=== PATIENT | male | born 1960 | race Caucasian/White ===

== ENCOUNTER → 2017-08-08 | Outpatient (CLI) | payer BC, OTHER ==
[~2017-08-08] MED LIST: AMLO-96 PO; AMOX-559 PO; ATR10 PO; CYCL10TA29 PO; DIPH0.5D12 IM; FLU IM; FLU45SYR17 IM; FLU60VIA21 IM ONLY; FLUT16SP20 NS; GUAI120L3 PO; IBU600 PO; IBU800 PO; LISI-362 PO; LISI20TA29 PO; LOR5 PO; NABU-95 PO; PER PO; PRED20TA6 PO; SIMV-49 PO; TAM4 PO; TAMS0.4C70 PO; TRAZ-156 PO; VAL80 PO; ZOL5 PO; ZOLP-358 PO; ZOLP-360 PO; ZOST19404 SQ
--- NOTE | 2017-08-08 13:26 | RADIOLOGY IMAGING REPORT ---
FACILITY: [facility] PATIENT NAME: Rajat Isidro : 1960 MR: [id number] V: [id number] EXAM DATE: ORDERING PHYSICIAN: SAMUEL DUPREE TECHNOLOGIST: [place] [facility] [place] Rajat Isidro : 1960 Visit/Account:[id number] Date of Sevice: 08/08/2017 ABDOMEN/PELVIS W/O CONTRAST HISTORY: flank pain and hematuria TECHNIQUE: Axial images acquired through the abdomen/pelvis. Coronal and sagittal reformatting also performed. No IV contrast administered. Dose Lowering Technique One of the following dose optimization techniques was utilized in the performance of this exam: Autom ated exposure control; adjustment of the mA and/or kV according to the patient's size; or use of an i terative reconstruction technique. Specific details can be referenced in the facility's radiology C T exam operational policy. COMPARISON: None. FINDINGS: Visualized lung bases: Small amount linear stranding at lung bases may represent scarring versus min imal atelectasis. Hepatobiliary: Cholelithiasis although no evidence of biliary ductal dilatation. There is a 1.6 cm hypoattenuating lesion in the medial segment left lobe of the liver in addition to several smaller hy poattenuating lesions that are indeterminate. Spleen: Negative. Adrenals: Negative. Pancreas: Negative. Kidneys ureters and bladder: 3 mm nonobstructing calculus mid pole of the right kidney. 2 mm nonobst ructing calculus lower pole calyx of the left kidney there appear to be numerous parapelvic cysts karo aterally although the kidneys not ideally evaluated due to lack of intravenous contrast. There are m ultiple hypodensities in both kidneys. The largest ones appear to represent cysts although are too s ome are too small to characterize and range in size up to 4.1 cm. There is no evidence of hydrourete r. The bladder is not well distended with urine and therefore not ideally evaluated. There are blad christian diverticula present. There is a slightly hyperdense filling defect seen along the inferior aspec t of the bladder measuring approximately 3 cm in diameter. Is unclear as to whether this represents superior extension of the prostate gland or a bladder mass. Genitalia: Prostate gland is enlarged and impinges upon the floor the urinary bladder. GI: Negative. Vessels/spaces/nodes: There are multiple small mesenteric lymph nodes present . There are moderate vascular calcifications present Bones/soft tissues: There are bilateral inguinal hernias containing fat. There is an umbilical moody ia containing fat. . There are moderate spondylotic changes L5-S1 with a grade 1 anterior listhesis of L5 with respect to S1 secondary to bilateral pars defects at L5 Additional findings: None pertinent. IMPRESSION: Nonobstructing calculi seen in both renal collecting systems There appear to be numerous parapelvic cysts and other hypodensities throughout both kidneys that are indeterminate. There is no evidence of hydroureter. There is a 3 cm in diameter hyperdense filling defect along the inferior aspect of the bladder which could represent superior extension of the pros alcantara gland although a bladder mass is also on the differential diagnosis. A CT urogram with delayed images through the renal collecting systems and bladder recommended. Bilateral inguinal hernias containing fat Umbilical hernia containing fat Cholelithiasis although no evidence for ductal dilatation Hypoattenuating lesions in the liver which could be further evaluated with CT Report Dictated By: Christie Gonzalez MD at 08/08/2017 11:35 AM Report E-Signed By: Christie Gonzalez MD at 08/08/2017 1:23 PM WSN:[email or web address]
== END ==
LOC: CT 07:44
PROVIDERS: ATTEND Nurse Practitioner Family
DX: K80.20 Calculus of gallbladder without cholecystitis without obstruction (principal); N20.0 Calculus of kidney; N32.3 Diverticulum of bladder; N40.0 Benign prostatic hyperplasia without lower urinary tract symptoms; K40.20 Bilateral inguinal hernia, without obstruction or gangrene, not specified as recurrent; K42.9 Umbilical hernia without obstruction or gangrene
CPT/HCPCS: 74176

== ENCOUNTER → 2017-08-13 | Outpatient (CLI) | payer BC ==
[~2017-08-13] MED LIST changes: +IOPAMIDOL 76% 75 ML INFUS BTL 75 ML ONE; +NS 0.9% 20 ML SDV 40 ML ONE
--- NOTE | 2017-08-13 15:32 | RADIOLOGY IMAGING REPORT ---
FACILITY: [facility] PATIENT NAME: Rajat Isidro : 1960 MR: [id number] V: [id number] EXAM DATE: ORDERING PHYSICIAN: SAMUEL DUPREE TECHNOLOGIST: Location: [facility] Patient: Rajat Isidro : 1960 Visit/Account:[id number] Date of Sevice: 08/13/2017 CT ABDOMEN WITH IV CONTRAST CLINICAL INFORMATION: Liver lesions TECHNIQUE: Axial CT images were obtained through the abdomen during injection of nonionic iodinated intravenous contrast. Reformatted coronal and sagittal images were also obtained. Dose Lowering Tech Y-Klub One of the following dose optimization techniques was utilized in the performance of this exam: Autom ated exposure control; adjustment of the mA and/or kV according to the patient's size; or use of an i terative reconstruction technique. Specific details can be referenced in the facility's radiology C T exam operational policy. CONTRAST: 75 mL of Isovue 370 IV contrast. COMPARISON: August 08, 2017. FINDINGS: Lower lung paul: There are mild coronary artery vascular calcifications Liver: The hypoattenuating liver lesions do not demonstrate contrast enhancement and are consistent w ith simple cyst. Biliary: The gallbladder is contracted. There is cholelithiasis although no evidence of biliary duct al dilatation. Pancreas: Normal appearance. Spleen: Normal appearance. Adrenal glands: Unremarkable. Kidneys / retroperitoneum: There is no demonstration of hydronephrosis or hydroureter. There are num erous parapelvic cysts in both kidneys in addition to cortical cysts. No enhancing lesions are ident ified within the kidneys nonobstructing nephrolithiasis again noted bilaterally Bowel / peritoneum / mesenteries: The visualized small and large bowel appear unremarkable. Lymph node assessment: Multiple small mesenteric lymph nodes are again seen Vessels: Moderate atherosclerotic calcification seen throughout a nonaneurysmal abdominal aorta and b ranches. Musculoskeletal / Body wall: There is an umbilical hernia containing fat. There are moderate spondyl otic changes at L5-S1 as previously reported IMPRESSION: 1. Multiple hepatic and renal cysts Cholelithiasis although no evidence of bony ductal dilatation. The gallbladder appears contracted wh ich could be related to a recent meal. Clinical correlation needed Nonobstructing nephrolithiasis Report Dictated By: Christie Gonzalez MD at 08/13/2017 3:11 PM Report E-Signed By: Christie Gonzalez MD at 08/13/2017 3:28 PM WSN:[email or web address]
== END ==
LOC: CT 01:58
PROVIDERS: ATTEND Nurse Practitioner Family
DX: K76.89 Other specified diseases of liver (principal); N28.1 Cyst of kidney, acquired; K80.20 Calculus of gallbladder without cholecystitis without obstruction; N20.0 Calculus of kidney; K42.9 Umbilical hernia without obstruction or gangrene
CPT/HCPCS: 74160; J7050; Q9967

== ENCOUNTER → 2017-08-16 | Outpatient (CLI) | payer BC ==
[~2017-08-16] MED LIST changes: +IOPAMIDOL 76% 50 ML INFUS BTL 50 ML ONE; -NS 0.9% 20 ML SDV 40 ML ONE; +NS 0.9% 20 ML SDV 60 ML ONE
--- NOTE | 2017-08-16 12:13 | RADIOLOGY IMAGING REPORT ---
FACILITY: [facility] [place] PATIENT NAME: Rajat Isidro : 1960 MR: [id number] V: [id number] EXAM DATE: ORDERING PHYSICIAN: SAMUEL DUPREE TECHNOLOGIST: Location: [facility] - [place] Patient: Rajat Isidro : 1960 Visit/Account:[id number] Date of Sevice: 08/16/2017 ABDOMEN/PELVIS W/WO CONTRAST HISTORY: Hematuria, renal lesion, liver lesion TECHNIQUE: Axial images acquired through the abdomen/pelvis both with and without IV contrast.. Marck nal and sagittal reformatting also performed. Dose Lowering Technique One of the following dose optimization techniques was utilized in the performance of this exam: Autom ated exposure control; adjustment of the mA and/or kV according to the patient's size; or use of an i terative reconstruction technique. Specific details can be referenced in the facility's radiology C T exam operational policy. CONTRAST: 75 mL Isovue-370 COMPARISON: August 13, 2017 FINDINGS: Visualized lung bases: There are mild coronary artery vascular calcifications present Hepatobiliary: Cholelithiasis although no evidence of biliary ductal dilatation. Hepatic cysts sasha in stable Spleen: Negative. Adrenals: Negative. Pancreas: Negative. Kidneys ureters and bladder: There are small nonobstructing calculi seen in both renal collecting sys tems. Again noted are numerous parapelvic cysts in both kidneys in addition to multiple cortical cys ts the largest cyst is in the left mid kidney now measuring 4.9 cm in diameter slightly increased whe n compared the prior study. There is no evidence of hydronephrosis or hydroureter. There are narrow necked bladder diverticula bilaterally . Genitalia: Prostate gland is markedly enlarged and impinges upon the floor the urinary bladder. The re is a 3.6 cm ovoid filling defect within the inferior aspect of the bladder immediately contiguous to the prostate gland. Is unclear as to whether this represents extension of the prostate gland or a true bladder mass. GI: Negative. Vessels/spaces/nodes: There are multiple small mesenteric lymph nodes. These are similar to the rupla or study. There are moderate vascular calcifications present Bones/soft tissues: Moderate spondylotic changes at L5-S1 again noted. Small umbilical hernia containing fat Additional findings: None pertinent. IMPRESSION: Cholelithiasis although no evidence of biliary ductal dilatation Hepatic and renal cortical and parapelvic cysts again seen. The largest cortical cyst is in the mid left kidney is slightly increased in size. Nonobstructing calculi in the renal collecting systems bilaterally Narrow necked bladder diverticula Prostate gland is markedly enlarged and impinges upon the floor the bladder. There is a 3.6 cm ovoid filling defect within the inferior aspect of the bladder immediately contiguous to the prostate glan d. Is unclear as to whether this represents superior extension of the prostate gland or a true bladd er mass. Cystoscopy is recommended for further evaluation given the clinical history of hematuria. Small umbilical hernia containing fat Report Dictated By: Christie Gonzalez MD at 08/16/2017 11:56 AM Report E-Signed By: Christie Gonzalez MD at 08/16/2017 12:08 PM MART:[email or web address]
== END ==
LOC: CT 02:23
PROVIDERS: ATTEND Nurse Practitioner Family
DX: K80.20 Calculus of gallbladder without cholecystitis without obstruction (principal); N20.0 Calculus of kidney; N28.1 Cyst of kidney, acquired; N32.3 Diverticulum of bladder; N40.0 Benign prostatic hyperplasia without lower urinary tract symptoms
CPT/HCPCS: 74178; J7050; Q9967

== ENCOUNTER → 2018-09-05 | Outpatient (CLI) | payer BC ==
[~2018-09-05] MED LIST changes: +AMLO-125 PO; +AMLO-127 PO; -AMLO-96 PO; +ATOR40TA69 PO; +FLU60SYR36 IM; -IOPAMIDOL 76% 50 ML INFUS BTL 50 ML ONE; -IOPAMIDOL 76% 75 ML INFUS BTL 75 ML ONE; -NS 0.9% 20 ML SDV 60 ML ONE; -TRAZ-156 PO; +TRAZ50TA34 PO; +VARI50KI IM; +ZOLP12.548 PO
[2018-09-05 09:57] LABS: PLATELET COUNT, AUTOMATED 230 K/uL (150-450)
[2018-09-05 10:25] LABS: LDL CHOLESTEROL 76 mg/dl
== END ==
LOC: LAB 09:39
PROVIDERS: ATTEND Nurse Practitioner Family
DX: E78.00 Pure hypercholesterolemia, unspecified (principal); N40.0 Benign prostatic hyperplasia without lower urinary tract symptoms; I10 Essential (primary) hypertension
CPT/HCPCS: 36415; 82040; 82247; 82310; 82374; 82435; 82465; 82565; 82947; 83718; 84075; 84132; 84153; 84155; 84295; 84443; 84450; 84460; 84478; 84520; 85025

== ENCOUNTER → 2019-02-10 | Outpatient (CLI) | payer BC ==
[~2019-02-10] MED LIST changes: -DIPH0.5D12 IM; +DIPH0.5S2 IM; -TRAZ50TA34 PO; +TRAZ50TA52 PO
[2019-02-10 12:53] LABS: PLATELET COUNT, AUTOMATED 306 K/uL (150-450)
== END ==
LOC: LAB 10:44
PROVIDERS: ATTEND Nurse Practitioner Primary Care
DX: R19.7 Diarrhea, unspecified (principal)
CPT/HCPCS: 36415; 82040; 82247; 82274; 82310; 82374; 82435; 82565; 82947; 83516; 83630; 84075; 84132; 84155; 84295; 84450; 84460; 84520; 85025; 85651; 86140; 87045; 87177; 87493

== ENCOUNTER → 2019-02-12 | Outpatient (CLI) | payer BC ==
[~2019-02-12] MED LIST changes: +IOPAMIDOL 76% 100 ML INFUS BTL 100 ML ONE
--- NOTE | 2019-02-12 11:24 | RADIOLOGY IMAGING REPORT ---
FAC[facility] PATIENT NAME: Rajat Isidro : 1960 MR: [id number] V: [id number] EXAM DATE: ORDERING PHYSICIAN: CECI WILLIS TECHNOLOGIST: Location: [facility] - [place] Patient: Rajat Isidro : 1960 Visit/Account:[id number] Date of Sevice: 02/12/2019 CT ABDOMEN PELVIS W/ CON HISTORY: Frequent diarrhea and weight loss TECHNIQUE: Following administration of IV contrast contiguous axial images acquired through the abdom en/pelvis. Coronal and sagittal reformatting also performed.Dose Lowering Technique One of the following dose optimization techniques was utilized in the performance of this exam: Autom ated exposure control; adjustment of the mA and/or kV according to the patient's size; or use of an i terative reconstruction technique. Specific details can be referenced in the facility's radiology C T exam operational policy. CONTRAST: 75 mL Isovue-370 COMPARISON: August 16, 2017 FINDINGS: Visualized lung bases: Negative. Hepatobiliary: Cholelithiasis although no evidence of biliary ductal dilatation. Hepatic cyst remai n stable Spleen: Negative. Adrenals: Negative. Pancreas: Negative. Kidneys ureters or bladder: There multiple cortical and parapelvic cyst in both kidneys nonobstructin g calculi again seen in the renal collecting systems bilaterally. Bladder diverticula again noted . The bladder lumen is not ideally evaluated due to lack of bladder contrast Genitalia: Prostate gland is markedly enlarged heterogeneous and impinges upon the floor the bladder . Seminal vesicles also appear prominent GI: Small hiatal hernia and mild thickening of the lower esophagus . There is a small umbilical he rnia containing a knuckle of small bowel. The portion of small bowel just proximal to the hernia is minimally prominent measuring 2.9 cm in diameter although no evidence of tyrone bowel obstruction Vessels/spaces/nodes: There is a 1.2 x 0.8 cm left internal iliac lymph node previously measuring 6 x 7 mm and is best appreciated on image 398 of series 3 . There are additional small perirectal lym ph nodes which have increased in size when compared to the prior study. There is a 1.3 x 0.9 cm left periaortic lymph node below the level the left renal vein previously measuring 7 x 8 mm other additi onal shotty retroperitoneal lymph nodes are slightly increased Bones/soft tissues: There spondylotic changes of the lumbar spine most prominent at L5-S1 where ther e is a grade 1 anterior listhesis of L5 with respect S1 secondary to bilateral pars defects at L5. T here is an umbilical hernia containing a knuckle of small bowel as detailed above under the GI sectio n. Is a left inguinal hernia containing fat Additional findings: None pertinent. IMPRESSION: Cholelithiasis although no evidence for ductal dilatation Multiple hepatic and renal cysts Bladder diverticula Prostate gland is markedly enlarged and heterogeneous impinging upon the floor the bladder. Seminal vesicles also appear prominent Small hiatal hernia with mild thickening the lower esophagus. This could be related to gastric esoph ageal reflux disease although clinical correlation needed There is a small umbilical hernia containing a knuckle of small bowel. The portion of small bowel ju st proximal to the hernia is minimally prominent although no evidence of tyrone bowel obstruction. Shotty retroperitoneal lymph nodes and perirectal lymph nodes have increased in size when compared th e prior study. These could be reactive although follow-up recommended. Additional chronic findings as described Report Dictated By: Christie Gonzalez MD at 02/12/2019 10:21 AM Report E-Signed By: Christie Gonzalez MD at 02/12/2019 11:16 AM WSN:[email or web address]
== END ==
LOC: CT 07:09
PROVIDERS: ATTEND Nurse Practitioner Primary Care
DX: K80.20 Calculus of gallbladder without cholecystitis without obstruction (principal); K76.89 Other specified diseases of liver; N28.1 Cyst of kidney, acquired; N32.3 Diverticulum of bladder; N40.0 Benign prostatic hyperplasia without lower urinary tract symptoms; K44.9 Diaphragmatic hernia without obstruction or gangrene; K42.9 Umbilical hernia without obstruction or gangrene
CPT/HCPCS: 74177; Q9967